=== PATIENT | female | born 1960 | race Caucasian/White ===

== ENCOUNTER 2020-08-28 13:52 | Emergency (ER) | payer MEDICAID, OTHER, SELFPAY ==
[2020-08-28] MEDS ORDERED: LORazepam 2 MG/ML SDV IVPUSH ONE (14:05)
--- NOTE | 2020-08-28 14:24 | CR ---
[id number] RAD/RAD Chest PA or AP 1V EXAM: RAD Chest PA or AP 1V INDICATION: COUGH, SHORTNESS OF BREATH. COMPARISON: 2013. DISCUSSION: Cardiomediastinal silhouette is normal in size and contour. Bilateral symmetric lung hyperinflation similar to prior examinations. Finding is nonspecific but commonly seen as sequela of chronic obstructive pulmonary disease. Lungs are clear. No pleural effusion or pneumothorax. IMPRESSION: As above. Roldan Ceja MD 08/28/20 1420 Thank you for allowing us to participate in the care of your patient.
[2020-08-28 15:17] LABS: CHLORIDE,CL 105 mmol/L (98-107); SODIUM,NA 145 mmol/L (136-145)
--- NOTE | 2020-08-28 15:39 | EDM.PDOC ---
ED HPI GENERAL MEDICAL PROBLEM - General Chief Complaint: Behavioral/Psych Stated Complaint: breathing difficulty Time Seen by Provider: 08/28/20 13:53 Source of Information: Reports: Patient History Limitations: Reports: No Limitations - History of Present Illness INITIAL COMMENTS - FREE TEXT/NARRATIVE: Patient comes emergency department today by ambulance with complaints of s hortness of breath and anxiety. This patient has a history of COPD for which she really does not take any medications to control her COPD. She has had some mild increase shortness of breath and tightness in her chest over the past couple of days. She has a chronic congested productive cough that has not gotten worse. She has no fever or chills. No weakness dizziness lightheadedness. The tightness in her chest has been going on the past couple of days as well. She continues to keep smoking. She is out of her controller medication and has no idea what it is. She denies any abdominal pain nausea or vomiting. She denies any Covid exposure no loss of taste or smell diarrhea fever chills sinus congestion or drainage. She is an alcoholic that has been sober for the last 3 years but she has been drinking quite heavily the past couple of weeks as she is struggling with her current social situation. She is living in a trailer and she is trying to find a place to live. Today she had to give her 2 dogs away so that she can finally find a place to live and she has been very anxious and distraught following the giving up of her dogs. This anxiety made her shortness of breath much worse. Is complaining of dysuria and urinary frequency. No flank pain. - Related Data Allergies Allergy/AdvReac Type Severity Reaction Status Date / Time codeine Allergy Itching Verified 09/06/18 15:03 Penicillins Allergy Itching Verified 07/08/20 17:53 tuberculin,PPD,multi-puncture Allergy Hives Verified 09/06/18 15:03 venom-honey bee Allergy Swelling Verified 09/06/18 15:03 [bee venom (honey bee)] Home Meds: Home Meds Acetaminophen [Tylenol] 650 mg PO Q4H PRN tablet 09/04/17 [Rx] Albuterol/Ipratropium [DuoNeb 3.0-0.5 MG/3 ML] 1 inh INH TID PRN 09/06/18 [History] Albuterol [Ventolin HFA] 1 puff INH Q4H PRN #1 puff 08/28/20 [Rx] Azithromycin 500 mg PO DAILY #5 tablet 08/28/20 [Rx] Tiotropium [Spiriva HandiHaler] 18 mcg .XX DAILY #30 cap 08/28/20 [Rx] cephALEXin [Cephalexin] 500 mg PO QID #20 capsule 08/28/20 [Rx] hydrOXYzine HCL [Atarax] 50 mg PO Q6H PRN #12 tab 08/28/20 [Rx] Past Medical History Cardiovascular History: Reports: Heart Murmur Respiratory History: Reports: Bronchitis, Recurrent, Pneumonia, Recurrent Gastrointestinal History: Reports: Hiatal Hernia, PUD Genitourinary History: Reports: UTI, Recurrent Musculoskeletal History: Reports: Arthritis, Back Pain, Chronic, Fracture, Other (See Below) Other Musculoskeletal History: LLE FX WITH mrsa INFECTION, degenertive bone disease. R)hand fx with surgical fix Neurological History: Reports: Brain Injury, Concussion, Other (See Below) Other Neuro History: short term memory loss, nerve problems in neck Psychiatric History: Reports: Anxiety, Depression, Panic Attack - Infectious Disease History Infectious Disease History: Reports: MRSA - Past Surgical History HEENT Surgical History: Reports: Tonsillectomy Female Surgical History: Reports: Tubal Ligation Social & Family History - Family History Family Medical History: Noncontributory - Tobacco Use Tobacco Use Status *Q: Current Every Day Tobacco User Years of Tobacco use: 20 Packs/Tins Daily: 0.5 Used Tobacco, but Quit: No Second Hand Smoke Exposure: No - Caffeine Use Caffeine Use: Reports: None - Recreational Drug Use Recreational Drug Use: No ED ROS GENERAL - Review of Systems Review Of Systems: Comprehensive ROS is negative, except as noted in HPI. ED EXAM, GENERAL - Physical Exam Exam: See Below Exam Limited By: No Limitations General Appearance: Alert, WD/WN, No Apparent Distress (Patient is alert appropriate appears in no acute distress. She has no increased work of breathing. Peers quite anxious more than anything.), Anxious Eye Exam: Bilateral Eye: EOMI Ears: Normal External Exam Nose: Normal Inspection, Normal Mucosa Throat/Mouth: Normal Inspection, Normal Lips, Normal Oropharynx Head: Atraumatic, Normocephalic Neck: Normal Inspection, Supple, Non-Tender Respiratory/Chest: No Respiratory Distress, Lungs Clear, Normal Breath Sounds, No Accessory Muscle Use, Chest Non-Tender Cardiovascular: Normal Peripheral Pulses, Regular Rate, Rhythm GI/Abdominal: Normal Bowel Sounds, Soft, Non-Tender (Female) Exam: Cervical Discharge Rectal (Female) Exam: Deferred Back Exam: Normal Inspection, Full Range of Motion Extremities: Normal Inspection, Normal Range of Motion, Non-Tender, No Pedal Edema, Normal Capillary Refill Neurological: Alert, Oriented, Normal Cognition, Normal Gait, No Motor/Sensory Deficits Psychiatric: Anxious, Tearful Skin Exam: Warm, Dry, Intact, Normal Color, No Rash #1 Interpretation EKG Date: 08/28/20 Time: 15:00 Rhythm: NSR Rate (Beats/Min): 80 [place]: Normal P-Wave: Present QRS: Normal ST-T: Normal QT: Normal Course - Vital Signs Last Recorded V/S: Last Vital Signs Temp 97.5 F 08/28/20 15:45 Pulse 84 08/28/20 15:45 Resp 16 08/28/20 15:45 BP 176/74 H 08/28/20 15:45 Pulse Ox 97 08/28/20 15:45 - Orders/Labs/Meds Orders: Active Orders 24 hr Category Date Time Status CULTURE URINE [RM] Stat Lab 08/28/20 14:48 Received Labs: Laboratory Tests 08/28/20 08/28/20 08/28/20 Range/Units 14:00 14:45 14:45 WBC 7.3 (4.0-10.0) x10^3/uL RBC 4.63 (4.00-5.50) x10^6/uL Hgb 15.0 (12.0-16.0) g/dL Hct 44.3 (33.0-47.0) % MCV 95.7 H (78.0-93.0) fL MCH 32.4 H (26.0-32.0) pg MCHC 33.9 (32.0-36.0) g/dL RDW Coeff of Yesi 14.8 (10.0-15.0) % Plt Count 215 (130-400) x10^3/uL Neut % (Auto) 49.5 L (50.0-80.0) % Lymph % (Auto) 34.8 (25.0-50.0) % [place] % (Auto) 9.7 (2.0-11.0) % Eos % (Auto) 5.7 H (0.0-4.0) % Baso % (Auto) 0.3 (0.2-1.2) % Sodium 145 (136-145) mmol/L Potassium 4.0 (3.5-5.1) mmol/L Chloride 105 (98-107) mmol/L Carbon Dioxide 30 (21-32) mmol/L Anion Gap 14.0 (10-20) mmol/L BUN 22 H (7-18) mg/dL Creatinine 1.0 (0.55-1.02) mg/dL Est Cr Clr Drug Dosing 39.04 mL/min Estimated GFR (MDRD) 57 Glucose 89 (74-106) mg/dL Calcium 9.1 (8.5-10.1) mg/dL Corrected Calcium 8.78 (8.5-10.1) mg/dL Total Bilirubin 0.3 (0.2-1.0) mg/dL AST 17 (15-37) U/L ALT 21 (14-59) U/L Alkaline Phosphatase 141 H (46-116) U/L Troponin I < 0.017 (<=0.056) ng/mL C-Reactive Protein < 0.2 (<=0.9) mg/dL Total Protein 8.0 (6.4-8.2) g/dL Albumin 4.4 (3.4-5.0) g/dL Globulin 3.6 Albumin/Globulin Ratio 1.22 Urine Color (YELLOW) Urine Appearance (CLEAR) Urine pH (5.0-8.0) Ur Specific [place] Urine Protein (NEGATIVE) mg/dL Urine Glucose (UA) (NEGATIVE) mg/dL Urine Ketones (NEGATIVE) mg/dL Urine Occult Blood (NEGATIVE) Urine Nitrite (NEGATIVE) Urine Bilirubin (NEGATIVE) Urine Urobilinogen (0.2) EU/dL Ur Leukocyte Esterase (NEGATIVE) Urine RBC (NOT SEEN) /HPF Urine WBC (NOT SEEN) /HPF Ur Squamous Epith Cells (NEGATIVE) /HPF Urine Bacteria (NEGATIVE) /HPF Granular Casts (Auto) Urine Mucus (NEGATIVE) /LPF Ethyl Alcohol 262 H (0-3) mg/dL SARS CoV-2 RNA Rapid RYLIE Negative (NEGATIVE) 08/28/20 Range/Units 14:48 WBC (4.0-10.0) x10^3/uL RBC (4.00-5.50) x10^6/uL Hgb (12.0-16.0) g/dL Hct (33.0-47.0) % MCV (78.0-93.0) fL MCH (26.0-32.0) pg MCHC (32.0-36.0) g/dL RDW Coeff of Yesi (10.0-15.0) % Plt Count (130-400) x10^3/uL Neut % (Auto) (50.0-80.0) % Lymph % (Auto) (25.0-50.0) % [place] % (Auto) (2.0-11.0) % Eos % (Auto) (0.0-4.0) % Baso % (Auto) (0.2-1.2) % Sodium (136-145) mmol/L Potassium (3.5-5.1) mmol/L Chloride (98-107) mmol/L Carbon Dioxide (21-32) mmol/L Anion Gap (10-20) mmol/L BUN (7-18) mg/dL Creatinine (0.55-1.02) mg/dL Est Cr Clr Drug Dosing mL/min Estimated GFR (MDRD) Glucose (74-106) mg/dL Calcium (8.5-10.1) mg/dL Corrected Calcium (8.5-10.1) mg/dL Total Bilirubin (0.2-1.0) mg/dL AST (15-37) U/L ALT (14-59) U/L Alkaline Phosphatase (46-116) U/L Troponin I (<=0.056) ng/mL C-Reactive Protein (<=0.9) mg/dL Total Protein (6.4-8.2) g/dL Albumin (3.4-5.0) g/dL Globulin Albumin/Globulin Ratio Urine Color Yellow (YELLOW) Urine Appearance Slightly cloudy H (CLEAR) Urine pH 6.5 (5.0-8.0) Ur Specific [place] 1.015 Urine Protein 30 H (NEGATIVE) mg/dL Urine Glucose (UA) Negative (NEGATIVE) mg/dL Urine Ketones Negative (NEGATIVE) mg/dL Urine Occult Blood Trace-intact H (NEGATIVE) Urine Nitrite Negative (NEGATIVE) Urine Bilirubin Negative (NEGATIVE) Urine Urobilinogen 0.2 (0.2) EU/dL Ur Leukocyte Esterase Trace H (NEGATIVE) Urine RBC 0-5 (NOT SEEN) /HPF Urine WBC 5-10 H (NOT SEEN) /HPF Ur Squamous Epith Cells Few H (NEGATIVE) /HPF Urine Bacteria Many H (NEGATIVE) /HPF Granular Casts (Auto) Few Urine Mucus Few H (NEGATIVE) /LPF Ethyl Alcohol (0-3) mg/dL SARS CoV-2 RNA Rapid RYLIE (NEGATIVE) Meds: Medications Discontinued Medications Generic Name Dose Route Start Last Admin Trade Name Freq PRN Reason Stop Dose Admin Albuterol 1 packet 08/28/20 16:01 08/28/20 16:09 Take Home: Albuterol 18 Gm, 1 Inh Pack INH 2 puff Q4H PRN Administration Shortness of Breath Azithromycin 500 mg 08/28/20 15:42 08/28/20 15:47 Zithromax PO 08/28/20 15:43 500 mg ONETIME ONE Administration Azithromycin 500 mg 08/28/20 16:03 08/28/20 16:09 Zithromax PO 08/28/20 16:04 Not Given ONETIME ONE Cephalexin 500 mg 08/28/20 15:42 08/28/20 15:47 Keflex PO 08/28/20 15:43 500 mg ONETIME ONE Administration Cephalexin 1 packet 08/28/20 16:01 08/28/20 16:09 Take Home: Cephalexin 500 Mg, 4 Cap Pack PO 08/28/20 16:02 1 packet ONETIME ONE Administration Hydroxyzine HCl 200 mg 08/28/20 20:00 Atarax PO QID CHRIS Hydroxyzine HCl 200 mg 08/28/20 16:09 08/28/20 17:07 Atarax PO 08/28/20 16:10 Not Given QID STA Hydroxyzine HCl 200 mg 08/28/20 16:14 08/28/20 16:17 Atarax PO 08/28/20 16:15 Not Given NOW STA Lorazepam 0.5 mg 08/28/20 14:05 08/28/20 14:25 Ativan IVPUSH 08/28/20 14:06 0.5 mg STAT ONE Administration - Radiology Interpretation Free Text/Narrative:: Chest x-ray per radiology shows symmetric lung inflation similar to prior exams. Sequelae consistent with COPD no effusion consolidation or pneumothorax. - Re-Assessments/Exams Free Text/Narrative Re-Assessment/Exam: 08/28/20 She was given 0.5 mg Ativan IV push with resolution of her anxiety shortness of breath and the tightness in her chest. EKG is unremarkable Chest x-ray with some chronic findings of COPD. Abs are otherwise unremarkable. With a normal troponin. Her urinalysis is somewhat infectious with a trace of leukocytes many bacteria and 5-10 WBCs. Urine culture pending. I really think she has a plethora of issues going on. She has some COPD that is not chronically managed with any therapies and she is out of all of them and she is unaware of what her typical therapies are. She really is in no acute distress or even a COPD exacerbation but she does have some very thick purulent appearing sputum in the emergency department. I think a lot of her shortness of breath and tightness in her chest is due to her anxiety. Her alcohol is 262 so I do not feel comfortable giving her any lorazepam to help with her anxiety. We will discharge her with hydroxyzine. Keflex for urinary tract infection azithromycin for her COPD increase sputum production. Albuterol as needed and Tiotropium as well. The nurse lEina PINEDA was able to help set the patient up with the [facility] to see if they can assist with her currently living situation. [place] the findings with the patient and the plan of care. She is comfortable with this plan and her questions were answered. Departure - Departure Time of Disposition: 15:31 Disposition: Home, Self-Care 01 Clinical Impression: Anxiety, Intoxication COPD (chronic obstructive pulmonary disease) Qualifiers: COPD type: unspecified COPD Qualified Code(s): J44.9 - Chronic obstructive pulmonary disease, unspecified UTI (urinary tract infection) Qualifiers: Urinary tract infection type: site unspecified Hematuria presence: with hematuria Qualified Code(s): N39.0 - Urinary tract infection, site not specified - Discharge Information Prescriptions: Azithromycin 500 mg PO DAILY #5 tablet cephALEXin [Cephalexin] 500 mg PO QID #20 capsule hydrOXYzine HCL [Atarax] 50 mg PO Q6H PRN #12 tab PRN Reason: Anxiety Tiotropium [Spiriva HandiHaler] 18 mcg .XX DAILY #30 cap Albuterol [Ventolin HFA] 1 puff INH Q4H PRN #1 puff PRN Reason: Shortness Of Breath Instructions: Chronic Obstructive Pulmonary Disease Exacerbation, [id number], How to Use a Nebulizer, Adult Referrals: PCP,Not In Area [Primary Care Provider] - Forms: ED Department Discharge Additional Instructions: No drinking alcohol. Lots of fluids over the next few days. Hydroxyzine 50mg every 6 hrs as needed for anxiety. Rx sent to [facility]. Albuterol inhaler, 2 puffs every 4 hrs as needed for shortness of breath. Rx to [facility] Azithromycin 1 tablet daily for the next 5 days Rx to [facility]. Tiotropium 2 puffs daily. RX to [facility]. Cephalexin 1 tablet 4 times a day for the next 5 days for the urinary tract infection. Rx to [facility]. Return to the ED if new or worsening symptoms. Follow up with PCP in the next week for recheck and referral to a counselor as well. Sepsis Event Note (ED) - Evaluation Sepsis Screening Result: No Definite Risk - Focused Exam Vital Signs: Vital Signs Temp Pulse Resp BP Pulse Ox 08/28/20 15:45 97.5 F 84 16 176/74 H 97 08/28/20 14:00 98.4 F 96 20 157/81 H 98 - My Orders Last 24 Hours: My Active Orders 08/28/20 14:48 CULTURE URINE [RM] Stat - Assessment/Plan Last 24 Hours: My Active Orders 08/28/20 14:48 CULTURE URINE [RM] Stat
[2020-08-28] MEDS ORDERED: Cephalexin 500 MG Cap PO ONE (15:42)
[2020-08-28] MEDS ORDERED: Azithromycin 250 MG Tab PO ONE ×2 (15:42→16:03)
[2020-08-28 15:58] VITALS: BP 176/74; PULSE 84
[2020-08-28] MEDS ORDERED: Take Home: Albuterol 18 GM Inhaler, 1 Inhaler Pack INH PRN (16:01)
[2020-08-28] MEDS ORDERED: Take Home: Cephalexin 500 MG Cap, 4 Cap Pack PO ONE (16:01)
[2020-08-28] MEDS ORDERED: hydrOXYzine HCl 25 MG Tab PO STA ×2 (16:09→16:14)
[2020-08-28] MEDS ORDERED: hydrOXYzine HCl 25 MG Tab PO SCH (20:00)
== END 2020-08-28 16:21 | disposition home or self-care (01) ==
LOC: VM.ED 13:52
DX: J44.9 Chronic obstructive pulmonary disease, unspecified (principal); N39.0 Urinary tract infection, site not specified; F41.9 Anxiety disorder, unspecified; F10.129 Alcohol abuse with intoxication, unspecified; Y90.8 Blood alcohol level of 240 mg/100 ml or more; F17.210 Nicotine dependence, cigarettes, uncomplicated; Z88.5 Allergy status to narcotic agent; Z88.0 Allergy status to penicillin; Z88.8 Allergy status to other drugs, medicaments and biological substances; Z91.030 Bee allergy status; Z20.828 Contact with and (suspected) exposure to other viral communicable diseases
CPT/HCPCS: 36415; 71045; 80053; 80307; 81001; 84484; 85025; 86140; 87086; 87088; 87186; 93005; 93010; 96374; 99284; 99285-25; A9270-GY; J2060; U0002